=== PATIENT | female | born 1975 | race Caucasian/White ===

== ENCOUNTER 2022-01-27 22:43 | Emergency (ER) | payer SELFPAY ==
[~2022-01-27] VITALS: Ht 160 cm; Wt 73.5 kg
[2022-01-27 22:46] VITALS: BP 126/82
[2022-01-27 23:00] VITALS: BP 120/79
== END 2022-01-27 23:00 ==
LOC: MED 22:43
DX: I10 Essential (primary) hypertension (principal); E11.9 Type 2 diabetes mellitus without complications; Z02.89 Encounter for other administrative examinations; V98.8XXA Other specified transport accidents, initial encounter; Y93.89 Activity, other specified; Y92.89 Other specified places as the place of occurrence of the external cause; Y99.8 Other external cause status
CPT/HCPCS: 99283